=== PATIENT | male | born 1995 | race Caucasian/White ===

== ENCOUNTER 2017-05-26 03:54 | Emergency (ER) | payer OTHER ==
[~2017-05-26] VITALS: Ht 180.3 cm; Wt 51.0 kg
[2017-05-26 03:56] VITALS: TEMP 36.7; Ht 180.3 cm; Wt 51.0 kg
[2017-05-26] MEDS ORDERED: IBUPROFEN 600 MG TAB PO STA (05:14)
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
[2017-05-26 05:33] VITALS: BP 121/80; PULSE 87; O2SAT 98
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
== END 2017-05-26 05:34 | disposition home or self-care (01) ==
LOC: C.EDB 03:55 → C.EDC 05:34
DX: S89.92XA Unspecified injury of left lower leg, initial encounter (principal); V09.9XXA Pedestrian injured in unspecified transport accident, initial encounter; S80.212A Abrasion, left knee, initial encounter; F17.200 Nicotine dependence, unspecified, uncomplicated

== ENCOUNTER 2017-09-29 02:52 | Emergency (ER) | payer OTHER ==
[~2017-09-29] VITALS: Ht 188 cm; Wt 43.0 kg
[2017-09-29 02:55] VITALS: TEMP 36.9; Ht 188 cm; Wt 43.0 kg
[2017-09-29 02:59] VITALS: O2SAT 97
[2017-09-29 05:05] LABS: CALCIUM 8.7 mg/dl (8.5-10.1); CREATININE 0.89 mg/dl (0.60-1.40); POTASSIUM 3.5 mmol/L (3.5-5.1)
[2017-09-29 05:23] VITALS: BP 121/77; PULSE 90; O2SAT 96
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
== END 2017-09-29 05:24 | disposition home or self-care (01) ==
LOC: EDBD 02:52 → C.EDA 02:53
DX: F10.929 Alcohol use, unspecified with intoxication, unspecified (principal); F17.200 Nicotine dependence, unspecified, uncomplicated; Y90.7 Blood alcohol level of 200-239 mg/100 ml